=== PATIENT | male | born 1930 | race Hispanic/Latino ===

== ENCOUNTER 2016-06-17 10:38 | Inpatient (IN) | payer MEDICARE ==
[2016-06-17] MEDS ORDERED: NACL 0.9% 1000 ML 1,000 ML ONE (10:54)
[2016-06-17] MEDS ORDERED: NACL 0.9% 1000 ML 1,000 ML IV ONE (11:01)
[2016-06-17 11:41] LABS: Basophils % (Auto) 0.5 % (0.0-1.8); Eosinophils % (Auto) 0.5 % (0.0-4.3); Hematocrit 35.9 % (35.5-45.6); Hemoglobin 11.2 gm/dl (11.8-15.2); Mean Corpuscular HGB Conc 31 % (32-34); Mean Corpuscular Hemoglobin 29 pg (28-32); Mean Corpuscular Volume 92 fl (84-94); Platelet Count 423 K/mm3 (140-440); Red Blood Count 3.89 M/mm3 (3.65-5.03); Red Cell Distribution Width 16.8 % (13.2-15.2); White Blood Count 12.1 K/mm3 (4.5-11.0)
[2016-06-17 11:48] LABS: ISTAT Base Excess -10; ISTAT HCO3 15.1; ISTAT PCO2 26.1 (35-45); ISTAT PH 7.371 (7.35-7.45); ISTAT PO2 242 (80-105); ISTAT SO2 100; ISTAT TCO2 16
--- NOTE | 2016-06-17 11:53 | XRay Report ---
PORTABLE CHEST INDICATION: Possible sepsis. COMPARISON: 04/18/2016 FINDINGS: Portable, frontal chest radiograph demonstrates normal cardiomediastinal silhouette and clear lungs. Some skin fold artifacts. Aortic atherosclerotic calcifications. EKG leads. Demineralized bones with few degenerative changes. Few surgical clips in the right neck also noted. CONCLUSION: No acute chest process, as described. Thank you for the opportunity to participate in this patient's care.
[2016-06-17 11:56] LABS: INR 1.09 (0.87-1.13)
[2016-06-17 11:57] LABS: Partial Thromboplastin Time 30.3 Sec. (24.2-36.6)
[2016-06-17] MEDS ORDERED: VANCOMYCIN PHARMACY TO DOSE IV SCH (12:00)
[2016-06-17 12:01] LABS: Alanine Aminotransferase 5 units/L (7-56); Albumin 2.9 g/dL (3.9-5); Albumin/Globulin Ratio 0.7 %; Alkaline Phosphatase 67 units/L (35-129); Bilirubin,Total 0.2 mg/dL (0.1-1.2); Blood Urea Nitrogen 61 mg/dL (9-20); Calcium 8.8 mg/dL (8.4-10.2); Carbon Dioxide 16 mmol/L (22-30); Glucose 129 mg/dL (75-100); Magnesium 3.3 mg/dL (1.7-2.3); Potassium 5.5 mmol/L (3.6-5.0); Sodium 140 mmol/L (137-145); Total Protein 7.3 g/dL (6.3-8.2)
[2016-06-17 12:04] LABS: Anion Gap 27 mmol/L; Bilirubin,Direct < 0.2 mg/dL (0-0.2)
--- NOTE | 2016-06-17 12:26 | Admit Criteria Form ---
Admission Criteria Documentation: SEVERE SEPSIS Clinical Indications for Admission to Inpatient Care (Place 'X' for any and all applicable criteria): Hospital admission is needed for appropriate care of the patient because of ANY ONE of the following: [X]I. Hemodynamic instability indicated by ANY ONE of the following(1)(2)(3)( 4)(5): [X]a. Vital sign abnormality not readily corrected by appropriate treatment within 12 to 24 hours indicated by ANY ONE of the following: []i) Tachycardia that persists despite appropriate treatment []ii) Hypotension that persists despite appropriate treatment []iii) Orthostatic vital sign changes that persist despite appropriate treatment [X]b. Vital sign abnormality that is severe indicated by ANY ONE of the following: [X]i. Inadequate perfusion indicated by ANY ONE of the following: [X]1) Lactic acidosis (greater than 2 mmol/L) []2) New abnormal capillary refill (greater than 3 seconds) []3) Reduced urine output []4) New altered mental status []5) Myocardial Ischemia []ii. Mean arterial pressure [A] less than 60 mm Hg []iii. Mean arterial pressure[A] less than 70 mm Hg after 30 minutes of appropriate treatment (eg, fluid resuscitation) []iv. Sustained heart rate greater than 120 beats per minute in adult []v. IV inotropic or vasopressor medication required to maintain adequate blood pressure or perfusion []II. Systemic or infectious condition causing severe symptoms or findings not responsive to emergency or observation care treatment (as appropriate) indicated by ANY ONE of the following: []a. Cardiac arrhythmias of immediate concern(1)(2)(3) []b. Severe endocrine disorder (eg, thyrotoxicosis, adrenal insufficiency)(4)(5) []c. Seizures (eg, new or recurrent)(6) []d. New-onset end organ failure or dysfunction as indicated by ANY ONE of the following: []i. Acute unexplained hypoxemia (eg, not from lung infection or chronic disease)(7)(8)(9) []ii. Acute renal failure as indicated by new onset of ANY ONE of the following(10)(11)(12)(13)(14): []1) 3-fold rise in serum creatinine from baseline []2) Serum creatinine greater than 4 mg/dL (354 micromoles/L) with acute rise greater than 0.5 mg/dL (44.2 micromoles/L) []3) Reduction of more than 75% in estimated glomerular filtration rate from baseline. []4) Estimated glomerular filtration rate less than 35 mL/min/1.73m2 ( 0.59 mL/sec/1.73m2) in child younger than 18 years. []5) Cessation of urine output indicated by ALL of the following: []A. Adequate volume status []B. Inadequate urine output as indicated by ANY ONE of the following: []a. Urine output less than 0.3 mL/kg/hr for 24 hours []b. Anuria (urine output less than 0.1 mL/kg/hr) for 12 hours []iii. Acute mental status changes(15) []iv. Acute hepatic failure (eg, plasma bilirubin greater than 4 mg/ dL (68 micromoles/L), new INR greater than 2.0)(16)(17) []e. Unmanageable nausea and vomiting(18) []f. New-onset or uncontrolled central diabetes insipidus(19)(20) []g. Clinically significant dehydration(18)(21) []h. Hypoglycemia(22) []i. Acidosis (pH less than 7.35) or alkalosis (pH greater than 7.45)( 22)(23) []j. Toxic drug level that indicates need for specific monitoring or treatment(24)(25) []k. Severe electrolyte abnormalities indicated by ALL of the following( 1)(2)(3): []i. Electrolytes and associated findings are not as expected for patient baseline or acceptable treatment effects. []ii. Severe abnormalities indicated by ANY ONE of the following: []1) Sodium less than 130 mEq/L (mmol/L) (new) []2) Sodium less than 135 mEq/L (mmol/L) with ANY ONE of the following: []A. Uncorrectable (to near normal or chronic baseline) after trial of outpatient and emergency treatment []B. Altered mental status []C. Seizures []D. Severe medical etiology requiring inpatient management (eg , heart failure, hypovolemia) []3) Sodium greater than 155 mEq/L (mmol/L) []4) Sodium greater than 150 mEq/L (mmol/L) with ANY ONE of the following: []A. Uncorrectable (to near normal or chronic baseline) with outpatient and emergency treatment []B. Altered mental status []C. Seizures []D. Severe medical etiology (eg, hypovolemia, diabetes insipidus) []5) Potassium less than 2.5 mEq/L (mmol/L) despite outpatient and emergency treatment []6) Potassium less than 3 mEq/L (mmol/L) with ANY ONE of the following : []A. Weakness []B. Cardiac abnormality (eg, arrhythmia, conduction disturbance ) []C. Cardiac ischemia []D. Ileus []E. Ongoing medical cause requiring inpatient management (eg, acute renal wasting or SIADH) []F. Other severe symptoms []7) Potassium greater than 6.5 mEq/L (mmol/L) []8) Potassium greater than 5 mEq/L (mmol/L) with ANY ONE of the following: []A. Uncorrectable (to near normal or chronic baseline) with outpatient and emergency treatment []B. Severe ECG findings[A] []C. Acute worsening of renal failure (creatinine greater than 2.5 mg/dL (221 micromoles/L) or significant elevation for age and size) []D. Severe weakness []E. Severe medical etiology (eg, hemolysis, infection, drug overdose) []9) Calcium less than 7 mg/dL (1.75 mmol/L) despite outpatient and emergency treatment(5) []10) Calcium less than 8 mg/dL (2 mmol/L) with significant symptoms or findings (eg, altered mental status, muscle spasms, seizures, breathing difficulty, cardiac abnormality (eg, arrhythmia or conduction disturbance))(5) []11) Calcium greater than 14 mg/dL (3.5 mmol/L)(5) []12) Calcium greater than 12 mg/dL (3 mmol/L) with ANY ONE of the following(5): []A. Uncorrectable (to near normal or chronic baseline) with outpatient and emergency treatment []B. Significant dehydration or hypovolemia as indicated by ALL of the following(3)(6)(7): []a. Not resolved with initial treatments []b. Clinically significant dehydration as indicated by ANY ONE of the following: [](1) Vomiting refractory to outpatient treatment (ie, precluding oral rehydration) [](2) Inability to drink [](3) Hypernatremia or other electrolyte abnormality unable to be corrected with outpatient and emergency treatment [](4) Failure to remain hydrated with outpatient therapy [](5) Reduced urine output [](6) Hypotension [](7) Serious cause for dehydration requiring acute hospitalization ( eg, bowel obstruction, increased intracranial pressure, infectious cause) [](8) Child with ANY ONE of the following(8): [](i) Severe abdominal tenderness [](ii) Adequate care not available at home [](iii) Severe dehydration (greater than 9% loss of body weight) []C. Significant symptoms or findings (eg, altered mental status , cardiac abnormality (eg, arrhythmia, conduction disturbance), malignant etiology requiring inpatient treatment) []13) Phosphorus less than 1 mg/dL (0.32 mmol/L) []14) Phosphorus less than 1.5 mg/dL (0.48 mmol/L) with ANY ONE of the following: []A. Patient unresponsive to outpatient and emergency treatment []B. Significant symptoms or findings (eg, weakness, altered mental status, breathing difficulty, seizures, rhabdomyolysis) []15) Phosphorus greater than 10 mg/dL (3.2 mmol/L) []16) Phosphorus greater than 4.5 mg/dL (1.45 mmol/L) (new) with ANY ONE of the following: []A. Severe medical etiology (eg, crush injury, acute renal failure) []B. Associated hypocalcemia with significant findings (eg, neurologic symptoms, altered mental status, muscle spasms, seizures, breathing difficulty, cardiac abnormality (eg, arrhythmia, conduction disturbance)) []16) Magnesium less than 1 mg/dL (0.41 mmol/L) []17) Magnesium less than 1.5 mg/dL (0.62 mmol/L) with ANY ONE of the following: []A. Patient unresponsive to outpatient and emergency treatment []B. Associated hypocalcemia with significant findings (eg, altered mental status, muscle spasms, seizures, breathing difficulty, cardiac abnormality (eg, arrhythmia, conduction disturbance)) []C. Associated hypokalemia (potassium less than 3 mEq/L (mmol/L )) with risk of arrhythmia []18) Magnesium greater than 4 mEq/L (2 mmol/L) []19) Magnesium greater than 2.5 mEq/L (1.25 mmol/L) with significant symptoms or findings (eg, weakness, altered mental status, cardiac abnormality (eg, arrhythmia, conduction disturbance), breathing difficulty, severe medical etiology (eg, renal failure, hypovolemia)) []20) Uric acid greater than 20 mg/dL (1190 micromoles/L)(9) []21) Uric acid greater than 8 mg/dL (476 micromoles/L) with significant symptoms or findings of tumor lysis syndrome (eg, creatinine greater than 1.5 times upper limit of normal, cardiac abnormality (eg , arrhythmia, conduction disturbance), seizure)(9) []III. High fever or other high-risk infection situation as indicated by ANY ONE of the following(26)(27)(28): []a. Outpatient and observation care antimicrobial treatment unavailable, not effective, or not appropriate []b. Documented bacteremia []c. Temperature greater than 104.9 degrees F (40.5 degrees C) (oral) []d. Temperature greater than 103.1 degrees F (39.5 degrees C) (oral) or less than 96.8 degrees F (36 degrees C) (rectal) that does not respond to emergency treatment and observation care []IV. High-risk febrile neutropenia[A] as indicated by ANY ONE of the following(29)(30)(31)(32): []a. Profound neutropenia[B] anticipated to extend for more than 7 days []b. Hemodynamic instability []c. Hypoxemia []d. Tachypnea []e. Altered mental status []f. New-onset abdominal pain []g. New-onset vomiting or diarrhea []h. Oral or gastrointestinal mucositis that interferes with swallowing or causes severe diarrhea []i. Focal infection (eg, cellulitis, pneumonia, central line or catheter infection, perirectal abscess) []j. Renal insufficiency (eg, GFR of less than 30 mL/min/1.73m2 (0.5 mL/sec /1.73m2)). []k. Severe liver dysfunction (transaminase levels greater than 5 times normal) []l. Platelet count less than 50,000/mm3 (50 x109/L)(33) []m. Leukemia or lymphoma induction therapy []n. Leukemia not in complete remission or with evidence of disease progression []o. Bone marrow transplant patient []p. Alemtuzumab being used for therapy []q. [employer] Association for Supportive Care in Cancer (MASCC) Risk Index score of less than 21[C](33)(35). []V. Isolation required (eg, tuberculosis that requires isolation, Ebola infection)[D](36)(37)(38)(39)(40) []. Gangrene that requires treatment beyond emergency or observation level care(41)(42) []VII. Antitoxin administration and ongoing observation required (eg, tetanus, botulism)(43)(44) []. Suspected infection with rapid progression or severe symptoms as indicated by ANY ONE of the following(45): []a. Streptococcal or staphylococcal toxic shock(46) []b. Diphtheria(47) []c. Hantavirus(48) []d. Severe acute respiratory syndrome(8)(49) []e. Anthrax(50) []f. Ebola[D](36)(37)(38) []g. Necrotizing soft tissue infection(41)(42) []h. Plague(50) []i. Other suspected infection that requires care beyond emergency or observation level care []VII. Severe adverse drug or systemic toxin reaction as indicated by ANY ONE of the following(24): []a. Serotonin syndrome(51)(52) []b. Neuroleptic malignant syndrome(51)(52) []c. Cholinergic syndrome with severe symptoms (eg, bronchorrhea, weakness , mental status changes, seizures)(53) []d. Anticholinergic syndrome []e. Sympathetic syndrome with severe symptoms (eg, seizures, mental status changes, cardiac dysrhythmias) []f. Other severe adverse drug or systemic toxin reaction that remains after emergency or observation level care (as appropriate) []VIII. Allergic reaction with severe symptoms (not responsive to emergency or observation care treatment as appropriate), including ANY ONE of the following(54): []a. Airway edema (pharyngeal, epiglottic, or laryngeal edema) []b. Stridor []c. Respiratory failure []d. Bronchospasm []e. Hypotension []IX. Environmental emergency (not responsive to emergency or observation care treatment as appropriate) as indicated by ANY ONE of the following(55)(56): []a. Hyperthermia []b. Heat stroke []c. Heat exhaustion []d. Hypothermia (temperature less than 95 degrees F (35 degrees C) rectal) (57) []e. Electrocution(58) []X. Complications of transplanted organ (ie, not covered elsewhere)[E] indicated by ANY ONE of the following(59): []a. Acute graft rejection (or graft vs. host disease)[F] requiring inpatient management (eg, intravenous immunosuppression)(60)(61)(62)( 63) []b. Acute failure of transplanted organ necessitating inpatient care (eg, cannot be managed in other setting) []c. Infection requiring inpatient management (eg, Hemodynamic instability, need for intravenous antimicrobial treatment)(64)(65) []d. Other complication of transplanted organ requiring inpatient management []XI. Systemic or Infectious Condition condition, symptom, or finding for which emergency and observation care have failed or are not considered appropriate. See General Criteria: Observation Care, General Admission Criteria or Pediatric General Admission Criteria guideline as appropriate. (Contents from SEVERE SEPSIS and SYSTEMIC OR INFECTIOUS CONDITION clinical indications for admission to inpatient care have been integrated in this form) The [facility] content [facility] by [facility] has been revised. The portions of the content which have been revised are identified through the use of italic text or in bold and [facility] has neither reviewed nor approved the modified material. All other unmodified content is copyright [facility]. Please see references footnoted in the original [facility] edition 2016 Admission Criteria Met: Yes
[2016-06-17] MEDS ORDERED: VANCOMYCIN/NS 1 GM/250 ML 250 ML IV SCH (13:00)
[2016-06-17] MEDS ORDERED: SODIUM BICARBONATE IV ONE ×3 (13:04→14:00)
--- NOTE | 2016-06-17 13:04 | Emergency Department Report ---
ED General Adult HPI - General Chief complaint: Dyspnea/Respdistress Stated complaint: LBP Time Seen by Provider: 06/17/16 11:27 Source: patient, EMS Mode of arrival: Stretcher Limitations: Physical Limitation - History of Present Illness Initial comments: Patient presents to this facility hypotensive with respiratory distress. He is limited ability to give any historical information. He is complaining of some chronic neck pain but otherwise denies any chest or abdominal pain. -: unknown Consistency: constant Improves with: none Worsens with: none Associated Symptoms: denies other symptoms - Related Data Home Medications Medication Instructions Recorded Confirmed Last Taken Amlodipine Besylate/Benazepril 1 each PO QDAY 04/18/16 06/17/16 1 Day Ago [Lotrel 10-40 mg] 10 Antacid [Alum-Mag Hydrox-Simeth 30 ml PO Q6HR 04/18/16 06/17/16 1 Day Ago [id number]/[id number]] 30 Bisacodyl [Laxative] 5 mg PO PRN 04/18/16 06/17/16 2 Weeks Ago 5 Citalopram [celeXA] 10 mg PO QDAY 04/18/16 06/17/16 1 Day Ago 10 Ibuprofen [Motrin 800 MG tab] 800 mg PO Q8HR PRN 04/18/16 06/17/16 1 Day Ago 800 Lisinopril [Zestril TAB] 40 mg PO QDAY 04/18/16 06/17/16 1 Day Ago 40 Melatonin [Melatin] 3 mg PO HS 04/18/16 06/17/16 1 Day Ago 3 Mirtazapine [Remeron] 15 mg PO QHS 04/18/16 06/17/16 1 Day Ago 15 Naproxen Sodium [Aleve TAB] 440 mg PO DAILY 04/18/16 06/17/16 1 Day Ago 440 Previous Rx's Medication Instructions Recorded Last Taken Type oxyCODONE /ACETAMINOPHEN [Percocet 1 tab PO Q6H PRN #12 tablet 04/22/16 Unknown Rx 5/325 mg] Allergies Allergy/AdvReac Type Severity Reaction Status Date / Time Penicillins Allergy Anaphylaxis Verified 04/18/16 14:31 ED Review of Systems ROS: Stated complaint: LBP Other details as noted in HPI Comment: Unobtainable due to pts medical conditions (no further information is available secondary to patient's condition) ED Past Medical Hx - Past Medical History Previous Medical History?: Yes Hx Hypertension: Yes Hx CVA: Yes (left sided weakness 2001) Hx Psychiatric Treatment: Yes (major depressive disorder) Hx Dementia: Yes Hx HIV: No Additional medical history: [facility] in the past - Surgical History Past Surgical History?: Yes Additional Surgical History: Prostate Surgery - Social History Smoking Status: Former Smoker Substance Use Type: None - Medications Home Medications: Home Medications Medication Instructions Recorded Confirmed Last Taken Type Amlodipine Besylate/Benazepril 1 each PO QDAY 04/18/16 06/17/16 1 Day Ago History [Lotrel 10-40 mg] 10 Antacid [Alum-Mag Hydrox-Simeth 30 ml PO Q6HR 04/18/16 06/17/16 1 Day Ago History [id number]/[id number]] 30 Bisacodyl [Laxative] 5 mg PO PRN 04/18/16 06/17/16 2 Weeks Ago History 5 Citalopram [celeXA] 10 mg PO QDAY 04/18/16 06/17/16 1 Day Ago History 10 Ibuprofen [Motrin 800 MG tab] 800 mg PO Q8HR PRN 04/18/16 06/17/16 1 Day Ago History 800 Lisinopril [Zestril TAB] 40 mg PO QDAY 04/18/16 06/17/16 1 Day Ago History 40 Melatonin [Melatin] 3 mg PO HS 04/18/16 06/17/16 1 Day Ago History 3 Mirtazapine [Remeron] 15 mg PO QHS 04/18/16 06/17/16 1 Day Ago History 15 Naproxen Sodium [Aleve TAB] 440 mg PO DAILY 04/18/16 06/17/16 1 Day Ago History 440 oxyCODONE /ACETAMINOPHEN [Percocet 1 tab PO Q6H PRN #12 tablet 04/22/16 Unknown Rx 5/325 mg] ED Physical Exam - General Limitations: Physical Limitation General appearance: other (respiratory difficulty but not westley distress) - Head Head exam: Present: atraumatic, normocephalic - Eye Eye exam: Absent: PERRL, EOMI, scleral icterus - ENT ENT exam: Present: mucous membranes dry - Neck Neck exam: Present: normal inspection. Absent: tenderness, meningismus - Respiratory Respiratory exam: Present: normal lung sounds bilaterally. Absent: respiratory distress - Cardiovascular Cardiovascular Exam: Present: regular rate, normal rhythm, systolic murmur. Absent: diastolic murmur, rubs, gallop - GI/Abdominal GI/Abdominal exam: Present: soft, normal bowel sounds. Absent: distended, tenderness, guarding, rebound, rigid - Neurological Exam Neurological exam: Present: other (mild left hemiparesis (chronic)) - Psychiatric Psychiatric exam: Present: flat affect ED Course Vital Signs 06/17/16 06/17/16 06/17/16 10:44 10:45 10:47 Temperature 97.6 F Pulse Rate 76 85 Respiratory Rate Blood Pressure 92/43 92/43 O2 Sat by Pulse 100 93 Oximetry 06/17/16 06/17/16 06/17/16 11:00 11:16 11:30 Temperature Pulse Rate 74 78 79 Respiratory 14 16 12 Rate Blood Pressure 92/43 65/42 65/42 O2 Sat by Pulse 92 Oximetry 06/17/16 06/17/16 06/17/16 11:46 12:00 12:16 Temperature Pulse Rate 71 65 61 Respiratory 14 9 L 12 Rate Blood Pressure 72/49 84/52 84/52 O2 Sat by Pulse 77 L Oximetry 06/17/16 06/17/16 06/17/16 12:27 12:30 12:37 Temperature Pulse Rate 63 60 61 Respiratory 13 14 12 Rate Blood Pressure 127/39 127/39 O2 Sat by Pulse 100 Oximetry 06/17/16 06/17/16 06/17/16 12:45 12:47 13:01 Temperature Pulse Rate 61 60 68 Respiratory 10 L 10 L 23 Rate Blood Pressure 129/30 110/58 O2 Sat by Pulse Oximetry 06/17/16 06/17/16 06/17/16 13:15 13:31 13:45 Temperature Pulse Rate 64 65 Respiratory 20 11 L 16 Rate Blood Pressure 110/58 123/67 110/51 O2 Sat by Pulse 98 Oximetry 06/17/16 06/17/16 06/17/16 14:01 14:15 14:31 Temperature Pulse Rate 75 84 73 Respiratory 11 L 29 H 17 Rate Blood Pressure 120/48 126/53 97/49 O2 Sat by Pulse Oximetry 06/17/16 06/17/16 06/17/16 14:45 14:58 15:01 Temperature Pulse Rate 87 71 Respiratory 15 18 22 Rate Blood Pressure 107/50 107/50 O2 Sat by Pulse 83 L Oximetry 06/17/16 06/17/16 06/17/16 15:15 15:30 15:45 Temperature Pulse Rate 79 66 Respiratory 16 21 16 Rate Blood Pressure 114/48 106/43 103/41 O2 Sat by Pulse 100 Oximetry 06/17/16 06/17/16 16:00 16:15 Temperature Pulse Rate 59 L 66 Respiratory 16 17 Rate Blood Pressure 103/38 109/44 O2 Sat by Pulse 100 Oximetry - Reevaluation(s) Reevaluation #1: Patient was given a bolus saline. He is given empiric Miotic. A urine specimen could not be obtained. He was treated empirically. He was given an amp of bicarbonate in consideration of his metabolic acidosis and hyperkalemia. Repeat BMP was recommended to the hospitalist who admitted the patient for further care and evaluation. The patient did improve his blood pressure as well as his respiratory difficulty. He did not require any airway assistance. His blood pressure did normalize with IV fluids. 06/17/16 19:51 ED Medical Decision Making - Lab Data Result diagrams: 06/17/16 11:10 06/17/16 11:10 Laboratory Results - last 24 hr 06/17/16 06/17/16 06/17/16 11:10 11:10 11:10 WBC 12.1 H RBC 3.89 Hgb 11.2 L Hct 35.9 MCV 92 MCH 29 MCHC 31 L RDW 16.8 H Plt Count 423 Lymph % (Auto) 17.1 [place] % (Auto) 3.5 Eos % (Auto) 0.5 Baso % (Auto) 0.5 Lymph # 2.1 [place] # 0.4 Eos # 0.1 Baso # 0.1 Seg Neutrophils % 78.4 H Seg Neutrophils # 9.5 H PT 14.0 INR 1.09 APTT 30.3 POC ABG pH POC ABG pCO2 POC ABG pO2 POC ABG HCO3 POC ABG Total CO2 POC ABG O2 Sat POC ABG Base Excess VBG pH FiO2 Sodium Potassium Chloride Carbon Dioxide Anion Gap BUN Creatinine Estimated GFR BUN/Creatinine Ratio Glucose Lactic Acid 2.6 H* Calcium Magnesium Total Bilirubin Direct Bilirubin Indirect Bilirubin AST ALT Alkaline Phosphatase NT-Pro-B Natriuret Pep Total Protein Albumin Albumin/Globulin Ratio Acetaminophen 06/17/16 06/17/16 06/17/16 11:10 11:10 11:10 WBC RBC Hgb Hct MCV MCH MCHC RDW Plt Count Lymph % (Auto) [place] % (Auto) Eos % (Auto) Baso % (Auto) Lymph # [place] # Eos # Baso # Seg Neutrophils % Seg Neutrophils # PT INR APTT POC ABG pH POC ABG pCO2 POC ABG pO2 POC ABG HCO3 POC ABG Total CO2 POC ABG O2 Sat POC ABG Base Excess VBG pH 7.269 L FiO2 Sodium 140 Potassium 5.5 H Chloride 103.0 Carbon Dioxide 16 L Anion Gap 27 BUN 61 H Creatinine 2.5 H Estimated GFR 25 BUN/Creatinine Ratio 24.40 Glucose 129 H Lactic Acid Calcium 8.8 Magnesium 3.3 H Total Bilirubin 0.2 Direct Bilirubin < 0.2 Indirect Bilirubin 0.0 AST 8 ALT 5 L Alkaline Phosphatase 67 NT-Pro-B Natriuret Pep 1534 H Total Protein 7.3 Albumin 2.9 L Albumin/Globulin Ratio 0.7 Acetaminophen 06/17/16 06/17/16 11:40 11:42 WBC RBC Hgb Hct MCV MCH MCHC RDW Plt Count Lymph % (Auto) [place] % (Auto) Eos % (Auto) Baso % (Auto) Lymph # [place] # Eos # Baso # Seg Neutrophils % Seg Neutrophils # PT INR APTT POC ABG pH 7.371 POC ABG pCO2 26.1 L POC ABG pO2 242 H POC ABG HCO3 15.1 POC ABG Total CO2 16 POC ABG O2 Sat 100 POC ABG Base Excess -10 VBG pH FiO2 100 Sodium Potassium Chloride Carbon Dioxide Anion Gap BUN Creatinine Estimated GFR BUN/Creatinine Ratio Glucose Lactic Acid Calcium Magnesium Total Bilirubin Direct Bilirubin Indirect Bilirubin AST ALT Alkaline Phosphatase NT-Pro-B Natriuret Pep Total Protein Albumin Albumin/Globulin Ratio Acetaminophen < 15.0 - EKG Data -: EKG Interpreted by Me - Radiology Data interpreted by me: Chest x-ray no acute process Critical Care Time: Yes Critical care time in (mins) excluding proc time.: 40 Critical care attestation.: If time is entered above; I have spent that time in minutes in the direct care of this critically ill patient, excluding procedure time. ED Disposition Clinical Impression: Hypotensive episode, Prerenal azotemia, Hyperkalemia Chronic renal insufficiency Qualifiers: Chronic kidney disease stage: stage 3 (moderate) Qualified Code(s): N18.3 - Chronic kidney disease, stage 3 (moderate) Disposition: OP ADMITTED IP TO THIS HOSP Is pt being admited?: Yes Does the pt Need Aspirin: Yes Condition: Stable Time of Disposition: 19:54
[2016-06-17] MEDS ORDERED: MERREM 1,000 MG in NACL 0.9% 100 ML IV ONE (13:17)
[2016-06-17 13:23] LABS: Creatine Kinase MB 1.1 ng/mL (0.0-4.0)
[2016-06-17 13:24] LABS: Creatine Kinase 47 units/L (55-170)
[2016-06-17] MEDS ORDERED: TYLENOL PO ONE (14:16)
--- NOTE | 2016-06-17 14:27 | Event Note ---
Date: 06/17/16 See H/p in reports Hypotension -iatrogenic Acute renal failure CHF Hx of HTN-adjust meds and discharge on minimum medications Hyperkalemia-mild
[2016-06-17] MEDS ORDERED: BISACODYL 5 MG PO SCH (14:30)
[2016-06-17] MEDS ORDERED: MILK OF MAGNESIA PO PRN (14:31)
[2016-06-17] MEDS ORDERED: PERCOCET 5/325 PO PRN (14:31)
[2016-06-17] MEDS ORDERED: DULCOLAX PR PRN (14:31)
[2016-06-17] MEDS ORDERED: ZOFRAN IV PRN (14:31)
[2016-06-17] MEDS ORDERED: TYLENOL PO PRN (14:31)
[2016-06-17] MEDS ORDERED: TYLENOL ONE (14:54)
[2016-06-17] MEDS ORDERED: DULCOLAX PO PRN ×2 (14:55→14:57)
[2016-06-17] MEDS ORDERED: D5NS 1,000 ML IV SCH (15:00)
[2016-06-17] MEDS ORDERED: DULCOLAX PO SCH (15:00)
[2016-06-17] MEDS: MERREM/NS 500 MG/50 ML 50 ML IV SCH ×3 (16:15→23:11)
[2016-06-17] MEDS: celeXA PO SCH (18:12)
[2016-06-17] MEDS: LOVENOX SUB-Q SCH (18:13)
[2016-06-17] MEDS: REMERON PO SCH (21:51)
[2016-06-17] MEDS ORDERED: LEVAQUIN 750MG/150ML 150 ML IV SCH (23:45)
[2016-06-17] MEDS ORDERED: LEVAQUIN 750MG/150ML 150 ML IV ONE (23:45)
--- NOTE | 2016-06-18 00:58 | History and Physical Report ---
CHIEF COMPLAINT: Respiratory distress for 1 day. HISTORY OF PRESENT ILLNESS: An 85-year-old male comes in for shortness of breath and respiratory distress. Also, hypertensive. Complaining of chronic neck pain. Cough present. Lying in bed comfortably. Also, low-grade fever present. PAST MEDICAL HISTORY: Significant for: 1. Hypertension. 2. Cerebrovascular accident with left-sided weakness since 2001. 3. Major depressive disorder, dementia. Follows with [facility]. PAST SURGICAL HISTORY: Prostate surgery. SOCIAL HISTORY: Former smoker. FAMILY HISTORY: Significant for hypertension. CURRENT MEDICATIONS: Amlodipine 10 mg daily, benazepril 40 mg p.o. daily, antacids at 30 mL p.o. q.6 hours, Lidoderm 5 mg daily p.r.n., Celexa 10 mg p.o. daily, ibuprofen 800 mg p.o. q.8, lisinopril 40 mg p.o. daily, melatonin 3 mg p.o. at bedtime, Remeron 15 mg p.o. at bedtime, naproxen 440 mg p.o. daily, Percocet 5/325 p.o. q.6 p.r.n. REVIEW OF SYSTEMS: Significant for shortness of breath and low-grade fever. Otherwise, review of systems is essentially negative. PHYSICAL EXAMINATION: GENERAL: Elderly male lying in bed. VITAL SIGNS: Initial blood pressure was 65/42 mm Hg. DIAGNOSTIC DATA: Chest x-ray shows no acute process. EKG shows normal sinus rhythm. BUN and creatinine are 61 and 2.5. ASSESSMENT AND PLAN: 1. Hypotension. IV fluids for the time being. 2. Acute renal failure. IV fluids again. 3. Possible underlying chronic kidney disease. 4. Congestive heart failure. BNP is high. We will get echocardiogram. We will involve [facility] as a consult. Optimize diuretics. 5. Hypertension, Hold benazepril and amlodipine. 6. Depression. Continue escitalopram. In summary, the main problem is hypotension, acute renal failure, and mild hyperkalemia. Low blood pressure was treated with IV fluids and acute renal failure was treated with IV fluids. Echocardiogram for the ejection fraction. Cardiology consult and Nephrology consult requested. JOB# [id number] [employer] [employer]
[2016-06-18 05:24] LABS: Basophils % (Auto) 0.6 % (0.0-1.8); Eosinophils % (Auto) 1.9 % (0.0-4.3); Hematocrit 32.5 % (35.5-45.6); Hemoglobin 10.7 gm/dl (11.8-15.2); Mean Corpuscular HGB Conc 33 % (32-34); Mean Corpuscular Hemoglobin 29 pg (28-32); Mean Corpuscular Volume 90 fl (84-94); Platelet Count 378 K/mm3 (140-440); Red Blood Count 3.62 M/mm3 (3.65-5.03); Red Cell Distribution Width 16.1 % (13.2-15.2); White Blood Count 7.9 K/mm3 (4.5-11.0)
[2016-06-18 05:42] LABS: Albumin 2.8 g/dL (3.9-5); Albumin/Globulin Ratio 0.7 %; Alkaline Phosphatase 56 units/L (35-129); Anion Gap 22 mmol/L; BUN/Creatinine Ratio 28.57; Bilirubin,Total 0.2 mg/dL (0.1-1.2); Blood Urea Nitrogen 60 mg/dL (9-20); Calcium 8.1 mg/dL (8.4-10.2); Carbon Dioxide 21 mmol/L (22-30); Chloride 105.9 mmol/L (98-107); Glucose 99 mg/dL (75-100); Potassium 4.9 mmol/L (3.6-5.0); Sodium 144 mmol/L (137-145); Total Protein 6.6 g/dL (6.3-8.2)
[2016-06-18 05:45] LABS: Alanine Aminotransferase < 5 units/L (7-56)
[2016-06-18] MEDS: celeXA PO SCH (09:47)
--- NOTE | 2016-06-18 11:43 | Consultation ---
Addendum entered and electronically signed by ANTHONY FRANCISCO MD 12:23: Agree with Mrs Cordero assessment and plan No signs of heart failure on exam. Patient is actually hypovolemic ECG is showing rate controlled atrial fibrillation - patient is a poor candidate for anticoagulation (high bleeding risk) Continue asa No further cardiac work-up needed Original Note: History of Present Illness Consult date: 06/18/16 Consult reason: atrial fibrillation, congestive heart failure History of present illness: This is an frail 85yr old male admitted with shortness of breath and hypotension. Patient reports shortness of breath but denies chest pain. Noted to have a BNP of 1534. Chest x-ray reports no acute process. Cardiac consultation requested for CHF. Medications and Allergies Allergies Allergy/AdvReac Type Severity Reaction Status Date / Time Penicillins Allergy Anaphylaxis Verified 04/18/16 14:31 Home Medications Medication Instructions Recorded Confirmed Last Taken Type Amlodipine Besylate/Benazepril 1 each PO QDAY 04/18/16 06/17/16 1 Day Ago History [Lotrel 10-40 mg] 10 Antacid [Alum-Mag Hydrox-Simeth 30 ml PO Q6HR 04/18/16 06/17/16 1 Day Ago History [id number]/5Ml] 30 Bisacodyl [Laxative] 5 mg PO PRN 04/18/16 06/17/16 2 Weeks Ago History 5 Citalopram [celeXA] 10 mg PO QDAY 04/18/16 06/17/16 1 Day Ago History 10 Ibuprofen [Motrin 800 MG tab] 800 mg PO Q8HR PRN 04/18/16 06/17/16 1 Day Ago History 800 Lisinopril [Zestril TAB] 40 mg PO QDAY 04/18/16 06/17/16 1 Day Ago History 40 Melatonin [Melatin] 3 mg PO HS 04/18/16 06/17/16 1 Day Ago History 3 Mirtazapine [Remeron] 15 mg PO QHS 04/18/16 06/17/16 1 Day Ago History 15 Naproxen Sodium [Aleve TAB] 440 mg PO DAILY 04/18/16 06/17/16 1 Day Ago History 440 oxyCODONE /ACETAMINOPHEN [Percocet 1 tab PO Q6H PRN #12 tablet 04/22/16 Unknown Rx 5/325 mg] Active Meds: Active Medications Acetaminophen (Tylenol) 650 mg PO Q4H PRN PRN Reason: Pain MILD(1-3)/Fever >100.5/SOLO Last Admin: 06/17/16 14:58 Dose: 650 mg Aspirin (Baby Aspirin) 81 mg PO QDAY ONE Stop: 06/18/16 21:01 Bisacodyl (Dulcolax) 10 mg [place] QDAY PRN PRN Reason: Constipation unrelieved by MOM Bisacodyl (Dulcolax) 5 mg PO PRN MADHU Citalopram Hydrobromide (Celexa) 10 mg PO QDAY [facility] Last Admin: 06/18/16 09:47 Dose: 10 mg Enoxaparin Sodium (Lovenox) 30 mg SUB-Q QDAY [facility] Levofloxacin/Dextrose (Levaquin 500mg/100ml) 100 mls @ 100 mls/hr IV Q48H [facility] PRN Reason: Protocol Magnesium Hydroxide (Milk Of Magnesia) 30 ml PO Q4H PRN PRN Reason: Constipation Mirtazapine (Remeron) 15 mg PO QHS [facility] Last Admin: 06/17/16 21:51 Dose: 15 mg Ondansetron HCl (Zofran) 4 mg IV Q8H PRN PRN Reason: N/V unrelieved by Reglan Oxycodone/Acetaminophen (Percocet 5/325) 1 tab PO Q6H PRN PRN Reason: Pain, Moderate (4-6) Last Admin: 06/18/16 09:47 Dose: 1 tab Physical Examination Vital Signs Pulse Ox 100 06/17/16 10:44 General appearance: no acute distress HEENT: Positive: PERRL Neck: Positive: trachea midline Cardiac: Positive: Irregularly Regular Results 06/18/16 05:09 06/18/16 05:09 Cardiac Enzymes 06/18/16 Range/Units 05:09 AST 7 (5-40) units/L CBC 06/18/16 Range/Units 05:09 WBC 7.9 (4.5-11.0) K/mm3 RBC 3.62 L (3.65-5.03) M/mm3 Hgb 10.7 L (11.8-15.2) gm/dl Hct 32.5 L (35.5-45.6) % Plt Count 378 (140-440) K/mm3 Lymph # 1.3 (1.2-5.4) K/mm3 [place] # 0.4 (0.0-0.8) K/mm3 Eos # 0.1 (0.0-0.4) K/mm3 Baso # 0.1 (0.0-0.1) K/mm3 Comprehensive Metabolic Panel 06/18/16 Range/Units 05:09 Sodium 144 (137-145) mmol/L Potassium 4.9 (3.6-5.0) mmol/L Chloride 105.9 (98-107) mmol/L Carbon Dioxide 21 L (22-30) mmol/L BUN 60 H (9-20) mg/dL Creatinine 2.1 H (0.8-1.5) mg/dL Glucose 99 (75-100) mg/dL Calcium 8.1 L (8.4-10.2) mg/dL AST 7 (5-40) units/L ALT < 5 L (7-56) units/L Alkaline Phosphatase 56 (35-129) units/L Total Protein 6.6 (6.3-8.2) g/dL Albumin 2.8 L (3.9-5) g/dL EKG interpretations - EKG Supraventricular dysrhythmia: atrial fibrillation Assessment and Plan Hypotension -resolved Chronic renal failure Hx of CVA Hx of Prostate cancer Echocardiogram for LVEF assessment.
--- NOTE | 2016-06-18 12:02 | Progress Note ---
Assessment and Plan Assessment and plan: 1. Hypotension likely 2/2 volume depletion, cw IVF 2. DARIA 2/2 Vasomotor nephropathy cw IVF as above, GFR improving Obtain CT A/P to rule out obstruction 3. CHF keep euvolemic and optimize meds, as BP allows Fup echo 4. Depreesion cont SSRI History Interval history: denies dizzyness or Lightheadeness,he is c/o urinary frequency, but feels like he is not emptying his bladder Hospitalist Physical - Physical exam Narrative exam: General: Patient appears well in no distress HEENT: MMM, EOMI cardiac: S1-S2 heard lungs: clear to auscultation, abdomen: soft, nontender, nondistended bowel sounds positive extremities: no edema clubbing or cyanosis Skin: no rash or lesion Neuro: no focal deficit Psych: appropriate behavior and mood, cognition intact - Constitutional Vitals: Temp Pulse Resp BP Pulse Ox 97.6 F 44 L 26 H 118/56 96 06/18/16 07:00 06/18/16 07:00 06/18/16 07:00 06/18/16 07:00 06/18/16 07:00 General appearance: Present: no acute distress Results - Labs CBC & Chem 7: 06/18/16 05:09 06/18/16 05:09 Labs: Laboratory Last Values WBC 7.9 K/mm3 (4.5-11.0) 06/18/16 05:09 RBC 3.62 M/mm3 (3.65-5.03) L 06/18/16 05:09 Hgb 10.7 gm/dl (11.8-15.2) L 06/18/16 05:09 Hct 32.5 % (35.5-45.6) L 06/18/16 05:09 MCV 90 fl (84-94) 06/18/16 05:09 MCH 29 pg (28-32) 06/18/16 05:09 MCHC 33 % (32-34) 06/18/16 05:09 RDW 16.1 % (13.2-15.2) H 06/18/16 05:09 Plt Count 378 K/mm3 (140-440) 06/18/16 05:09 Lymph % (Auto) 16.1 % (13.4-35.0) 06/18/16 05:09 [place] % (Auto) 5.5 % (0.0-7.3) 06/18/16 05:09 Eos % (Auto) 1.9 % (0.0-4.3) 06/18/16 05:09 Baso % (Auto) 0.6 % (0.0-1.8) 06/18/16 05:09 Lymph # 1.3 K/mm3 (1.2-5.4) 06/18/16 05:09 [place] # 0.4 K/mm3 (0.0-0.8) 06/18/16 05:09 Eos # 0.1 K/mm3 (0.0-0.4) 06/18/16 05:09 Baso # 0.1 K/mm3 (0.0-0.1) 06/18/16 05:09 Seg Neutrophils % 75.9 % (40.0-70.0) H 06/18/16 05:09 Seg Neutrophils # 6.0 K/mm3 (1.8-7.7) 06/18/16 05:09 PT 14.0 Sec. (12.2-14.9) 06/17/16 11:10 INR 1.09 (0.87-1.13) 06/17/16 11:10 APTT 30.3 Sec. (24.2-36.6) 06/17/16 11:10 POC ABG pH 7.371 (7.35-7.45) 06/17/16 11:42 POC ABG pCO2 26.1 (35-45) L 06/17/16 11:42 POC ABG pO2 242 (80-105) H 06/17/16 11:42 POC ABG HCO3 15.1 06/17/16 11:42 POC ABG Total CO2 16 06/17/16 11:42 POC ABG O2 Sat 100 06/17/16 11:42 POC ABG Base Excess -10 06/17/16 11:42 VBG pH 7.269 (7.320-7.420) L 06/17/16 11:10 FiO2 100 % 06/17/16 11:42 Sodium 144 mmol/L (137-145) 06/18/16 05:09 Potassium 4.9 mmol/L (3.6-5.0) 06/18/16 05:09 Chloride 105.9 mmol/L (98-107) 06/18/16 05:09 Carbon Dioxide 21 mmol/L (22-30) L 06/18/16 05:09 Anion Gap 22 mmol/L 06/18/16 05:09 BUN 60 mg/dL (9-20) H 06/18/16 05:09 Creatinine 2.1 mg/dL (0.8-1.5) H 06/18/16 05:09 Estimated GFR 30 ml/min 06/18/16 05:09 BUN/Creatinine Ratio 28.57 % 06/18/16 05:09 Glucose 99 mg/dL (75-100) 06/18/16 05:09 Hemoglobin A1c 5.0 % (4-6) 06/17/16 11:10 Lactic Acid 1.2 mmol/L (0.7-2.0) 06/18/16 05:09 Calcium 8.1 mg/dL (8.4-10.2) L 06/18/16 05:09 Magnesium 3.3 mg/dL (1.7-2.3) H 06/17/16 11:10 Total Bilirubin 0.2 mg/dL (0.1-1.2) 06/18/16 05:09 Direct Bilirubin < 0.2 mg/dL (0-0.2) 06/17/16 11:10 Indirect Bilirubin 0.0 mg/dL 06/17/16 11:10 AST 7 units/L (5-40) 06/18/16 05:09 ALT < 5 units/L (7-56) L 06/18/16 05:09 Alkaline Phosphatase 56 units/L (35-129) 06/18/16 05:09 Total Creatine Kinase 47 units/L (55-170) L 06/17/16 11:40 CK-MB (CK-2) 1.1 ng/mL (0.0-4.0) 06/17/16 11:40 CK-MB (CK-2) Rel Index 2.3 (0-4) 06/17/16 11:40 Troponin T < 0.010 ng/mL (0.00-0.029) 06/17/16 11:40 NT-Pro-B Natriuret Pep 1534 pg/mL (0-900) H 06/17/16 11:10 Total Protein 6.6 g/dL (6.3-8.2) 06/18/16 05:09 Albumin 2.8 g/dL (3.9-5) L 06/18/16 05:09 Albumin/Globulin Ratio 0.7 % 06/18/16 05:09 Acetaminophen < 15.0 ug/mL (10.0-30.0) 06/17/16 11:40
[2016-06-18] MEDS ORDERED: NACL 0.9% 1000 ML 1,000 ML IV SCH ×2 (13:00→18:00)
--- NOTE | 2016-06-18 14:57 | Consultation ---
History of Present Illness - Reason for Consult Consult date: 06/18/16 acute renal failure, chronic renal failure - History of Present Illness Patient is a 85 yo WM with history significant for HTN, CKD (?stage), Left kidney mass and Depression came to ER from [place] with complaints of shortness of breath and hypotension. Patient is a poor historian. His systolic BP was in 60 's on arrival. BP is better now with IV fluids. His creatinine was 2.5 yesterday and has improved to 2.1 today. Patient received hemodialysis during last admission for DARIA. His creatinine was 2.1 at the time of discharge. His baseline creatinine ia unknown. He was found to have a left kidney mass. Please see notes from previous admission. Patient reports poor appetite, nausea , fatigue and feeling unwell. Past History Past Medical History: atrial fib, hypertension, renal failure Medications and Allergies Allergies Allergy/AdvReac Type Severity Reaction Status Date / Time Penicillins Allergy Anaphylaxis Verified 04/18/16 14:31 Home Medications Medication Instructions Recorded Confirmed Last Taken Type Amlodipine Besylate/Benazepril 1 each PO QDAY 04/18/16 06/17/16 1 Day Ago History [Lotrel 10-40 mg] 10 Antacid [Alum-Mag Hydrox-Simeth 30 ml PO Q6HR 04/18/16 06/17/16 1 Day Ago History [id number]/5Ml] 30 Bisacodyl [Laxative] 5 mg PO PRN 04/18/16 06/17/16 2 Weeks Ago History 5 Citalopram [celeXA] 10 mg PO QDAY 04/18/16 06/17/16 1 Day Ago History 10 Ibuprofen [Motrin 800 MG tab] 800 mg PO Q8HR PRN 04/18/16 06/17/16 1 Day Ago History 800 Lisinopril [Zestril TAB] 40 mg PO QDAY 04/18/16 06/17/16 1 Day Ago History 40 Melatonin [Melatin] 3 mg PO HS 04/18/16 06/17/16 1 Day Ago History 3 Mirtazapine [Remeron] 15 mg PO QHS 04/18/16 06/17/16 1 Day Ago History 15 Naproxen Sodium [Aleve TAB] 440 mg PO DAILY 04/18/16 06/17/16 1 Day Ago History 440 oxyCODONE /ACETAMINOPHEN [Percocet 1 tab PO Q6H PRN #12 tablet 04/22/16 Unknown Rx 5/325 mg] Active Meds: Active Medications Acetaminophen (Tylenol) 650 mg PO Q4H PRN PRN Reason: Pain MILD(1-3)/Fever >100.5/SOLO Last Admin: 06/17/16 14:58 Dose: 650 mg Aspirin (Baby Aspirin) 81 mg PO QDAY ONE Stop: 06/18/16 21:01 Bisacodyl (Dulcolax) 10 mg [place] QDAY PRN PRN Reason: Constipation unrelieved by MOM Bisacodyl (Dulcolax) 5 mg PO PRN MADHU Citalopram Hydrobromide (Celexa) 10 mg PO QDAY [facility] Last Admin: 06/18/16 09:47 Dose: 10 mg Enoxaparin Sodium (Lovenox) 30 mg SUB-Q QDAY [facility] Sodium Chloride (Nacl 0.9% 1000 Ml) 1,000 mls @ 75 mls/hr IV DIRECT MADHU Stop: 06/20/16 02:19 Magnesium Hydroxide (Milk Of Magnesia) 30 ml PO Q4H PRN PRN Reason: Constipation Mirtazapine (Remeron) 15 mg PO QHS [facility] Last Admin: 06/17/16 21:51 Dose: 15 mg Ondansetron HCl (Zofran) 4 mg IV Q8H PRN PRN Reason: N/V unrelieved by Reglan Oxycodone/Acetaminophen (Percocet 5/325) 1 tab PO Q6H PRN PRN Reason: Pain, Moderate (4-6) Last Admin: 06/18/16 09:47 Dose: 1 tab Review of Systems ROS unobtainable: due to mental status Exam - Vital Signs Vital signs: Vital Signs Pulse Ox 100 06/17/16 10:44 - General Appearance General appearance: cachectic, frail, other (no distress) EENT: PERRL, mucous membranes dry, hearing intact, vision intact Neck: Present: neck supple, trachea midline Respiratory: Clear to Ascultation Heart: S1S2, no murmurs Gastrointestinal: Present: normoactive bowel sounds, other (condom catheter noted). Absent: tenderness, distended, guarding Integumentary: no rash, warm and dry Neurologic: no focal deficit, confused Musculoskeletal: Present: other (no edema) Psychiatric: mood/affect appropriate, cooperative Results - Lab Results 06/18/16 05:09 06/18/16 05:09 Most recent lab results Calcium 8.1 mg/dL (8.4-10.2) L 06/18/16 05:09 Magnesium 3.3 mg/dL (1.7-2.3) H 06/17/16 11:10 Assessment and Plan - Patient Problems (1) DARIA (acute kidney injury) Current Visit: Yes Status: Acute Plan to address problem: Acute kidney Injury superimposed on CKD in the setting of hypotension and volume depletion. Creatinine is improving with IV fluids. BP is better. (2) Hypotensive episode Current Visit: Yes Status: Acute Plan to address problem: BP is better. (3) Renal mass Current Visit: Yes Status: Acute Plan to address problem: Please see notes from last admission.
[2016-06-18 16:28] LABS: Bilirubin,Urine NEG (Negative); Blood,Urine SM (Negative); Ketones,Urine TR mg/dL (Negative); Leukocyte Esterase,Urine LG (Negative); Mucus,Urine FEW /HPF; Nitrite,Urine NEG (Negative); Protein,Urine <15 mg/dL mg/dL (Negative); Urobilinogen,Urine < 2.0 mg/dL (<2.0)
[2016-06-18 16:30] LABS: WBC,Urine > 182.0 /HPF (0.0-6.0)
[2016-06-18] MEDS ORDERED: BABY ASPIRIN PO ONE (21:00)
[2016-06-18] MEDS: REMERON PO SCH (22:15)
[2016-06-18] MEDS: LOVENOX SUB-Q SCH (22:17)
--- NOTE | 2016-06-19 03:52 | Cat Scan Report ---
FINAL REPORT PROCEDURE: CT ABDOMEN PELVIS WO CON TECHNIQUE: Computerized axial tomography of the abdomen and pelvis was performed without intravenous contrast. This study is performed without intravascular contrast material and its sensitivity for abdominal and pelvic pathology, including neoplasms, inflammation, abscess, free fluid, thrombosis, arterial dissection and infarction, is reduced compared with a contrast enhanced study. HISTORY: DARIA, urinary retention, pls r/o obstructive uropat COMPARISON: 04/19/2016 FINDINGS: Visualized lower thorax: Moderate left effusion and mild right effusion are noted. Slight atelectasis bilateral lower lungs. Mild vascular congestion. Liver: The liver size is normal. There are few small cysts identified within the liver parenchyma, these have not changed. There is some biliary ductal dilatation. This has not changed.. Spleen: Normal size and attenuation. Gallbladder and biliary system: The gallbladder is distended. No stones are identified.. Pancreas: Normal. Adrenals: There is a 2 centimeter area of hypoattenuation in the left adrenal gland, and adenoma is suspected. There is a 1 centimeter region of hypoattenuation in the right adrenal gland. An adenoma is suspected.. Kidneys: There is thinning of the renal cortex bilaterally. Significant perinephric fat stranding identified bilaterally. Moderate left hydronephrosis and proximal hydroureter is identified on this study. This has not changed significantly since prior study. The right collecting system appears normal. There are few left peripelvic cysts. Bilateral renal cortical cysts are identified on this study. These have not changed. A large mixed attenuated lesion in the lower left kidney is identified and most likely represents a mass. This has not changed since prior study. Nonobstructive left uropathy is suspected. There is no evidence of a mass or stone in the course of the left ureter.. GI tract: The stomach is normal. A small hiatal hernia is identified. The small bowel has a normal caliber. No obstruction is seen. No ileus or enteritis. The cecum, appendix region and colon are normal. There is moderate diverticular change in the distal colon. No inflammatory process this region.. Lymph nodes and mesentery: Lymphadenopathy in the retroperitoneum is again identified. This has not changed since prior study. The largest lymph node grouping in the periaortic region measures 4.7 x 3.2 centimeters.. Vasculature: There is moderate atherosclerosis of the aorta and all branching vessels. Bladder: Normal appearance. There is some air in the urinary bladder, this is most consistent with iatrogenic catheterization.. Reproductive organs: Normal. Peritoneum: No free fluid. Musculoskeletal structures: Moderate degenerative changes of the thoracic and lumbar spine. No acute osseous abnormality.. Other: None. IMPRESSION: There remains moderate left hydronephrosis and hydroureter down into the pelvis. No obstructing stone or lesion within the ureter. Nonobstructive uropathy is suspected. No change in the patient's retroperitoneal adenopathy with lymph nodes surrounding the aorta. The largest grouping of lymph nodes measures up to 4.7 centimeters. No evidence of intestinal obstruction. Left kidney mass along the inferior pole is again noted and unchanged. Renal carcinoma is suspected. Distended gallbladder lumen with no evidence of stone formation. There is some distention of the biliary ductal system. Further evaluation with ultrasound and or HIDA scan may be appropriate. Newly developed bilateral lower lung atelectasis and effusions. The effusion is moderate on the left and slight on the right..
[2016-06-19 06:38] LABS: BUN/Creatinine Ratio 26.11; Chloride 109.3 mmol/L (98-107)
--- NOTE | 2016-06-19 08:51 | Discharge Summary ---
Providers - Providers Date of Admission: 06/17/16 14:31 Attending physician: SADAF CHAND MD 06/17/16 23:41 Consult to Physician [CONS] Routine Consulting Provider: JIGNESH MARI Reason For Exam: chf+hypotension Place consult to:: yenifer medina Notified:: office Phone number called:: overhead paged Was contact made?: Yes If yes, spoke with:: yenifer Shaikh called:: 09:48 06/17/16 23:42 Consult to Physician [CONS] Routine Consulting Provider: TAJ HERNÁNDEZ Reason For Exam: ARF Place consult to:: dr. hernández Notified:: dr hernández Phone number called:: [phone] Was contact made?: Yes If yes, spoke with:: dr. hernández Time called:: 10:01 Primary care physician: YUKO CERRATO Hospitalization Condition: Stable Hospital course: This is an 85M who presented with hypotension and dizzyness 1. Hypotension likely 2/2 volume depletion, and blood pressure medications, BP medications were discontinued, patient was hydrated with IV fluids 2. Acute kidney injury superimposed upon chronic kidney disease due to vasomotor nephropathy He was treated with IV fluids, and clinically improved, renal function returned to baseline 3. CHF Patient was actually hypovolemic upon admission, he was treated with IV fluids. 4. Atrial fibrillation Patient was continued on aspirin for stroke prophylaxis, patient is a high risk for bleeding therefore was not put on any other follow-up anticoagulation, his rate was controlled throughout the admission 5. Renal mass This was diagnosed on previous hospital admission, patient has been declared that he does not want any aggressive investigations a workup Disposition: DC/TX SNF [facility] Time spent for discharge: 35 minutes Core Measure Documentation - Palliative Care Palliative Care/ Comfort Measures: Not Applicable - Core Measures Any of the following diagnoses?: heart failure - Heart Failure Discharge Requirements KOKO/ARB for LVSD if EF <40%: No Reason for no KOKO/ARB: Hypotension Beta [place] at discharge: No Reason for no beta [place] on DC: Bradycardia Exam - Physical Exam Narrative exam: General: Patient appears well in no distress HEENT: MMM, EOMI cardiac: S1-S2 heard lungs: clear to auscultation, abdomen: soft, nontender, nondistended bowel sounds positive extremities: no edema clubbing or cyanosis Skin: no rash or lesion Neuro: no focal deficit Psych: appropriate behavior and mood, cognition intact - Constitutional Vitals: Temp Pulse Resp BP Pulse Ox 97.7 F 66 14 114/58 97 06/19/16 08:00 06/19/16 08:00 06/19/16 08:00 06/19/16 08:00 06/19/16 08:00 Plan Follow up with: YUKO CERRATO MD [Primary Care Provider] - 7 Days Prescriptions: oxyCODONE /ACETAMINOPHEN [Percocet 5/325 mg] 1 tab PO Q6H PRN #6 tablet PRN Reason: Pain, Moderate (4-6)
--- NOTE | 2016-06-19 08:55 | Progress Note ---
Assessment and Plan - Patient Problems (1) DARIA (acute kidney injury) Status: Acute Plan to address problem: Acute kidney Injury superimposed on CKD in the setting of hypotension and volume depletion. Creatinine continues to improve with IV fluids. BP is better. (2) Hypotensive episode Status: Acute Plan to address problem: BP is better. (3) Renal mass Status: Acute Plan to address problem: Please see notes from last admission. Subjective Date of service: 06/19/16 Interval history: No new complaint. Objective - Vital Signs Vital signs: Vital Signs - 12hr 06/19/16 06/19/16 00:00 08:00 Temperature 97.4 F L 97.7 F Pulse Rate [ 74 66 Right] Respiratory 16 14 Rate Blood Pressure 113/59 114/58 [Right Arm] O2 Sat by Pulse 97 97 Oximetry - General Appearance General appearance: frail, other (no distress) EENT: PERRL, mucous membranes moist, hearing intact Neck: no JVD, supple Respiratory: Present: Clear to Ascultation Cardiology: S1S2, no murmurs Gastrointestinal: normoactive bowel sounds, no tenderness, no distended, no guarding Integumentary: no rash, warm and dry Neurologic: no focal deficit, confused Musculoskeletal: other (no edema) Psychiatric: cooperative - Lab 06/18/16 05:09 06/19/16 05:49 Most recent lab results Calcium 8.0 mg/dL (8.4-10.2) L 06/19/16 05:49 Magnesium 3.3 mg/dL (1.7-2.3) H 06/17/16 11:10
--- NOTE | 2016-06-19 09:35 | Progress Note ---
Assessment and Plan Hypotension -resolved Chronic renal failure Hx of CVA Hx of Prostate cancer ECG is showing rate controlled atrial fibrillation - patient is a poor candidate for anticoagulation (high bleeding risk) Continue asa Echo results pending No further cardiac work-up needed Subjective Date of service: 06/19/16 Interval history: Patient resting in bed. He denies chest pain and shortness of breath. Objective Vital Signs Temp Pulse Resp BP Pulse Ox 06/19/16 08:00 97.7 F 66 14 114/58 97 06/19/16 00:00 97.4 F L 74 16 113/59 97 06/18/16 16:00 98 F 72 20 113/56 06/18/16 10:00 97 - Physical Examination General: No Apparent Distress HEENT: Positive: PERRL Neck: Positive: neck supple, trachea midline Cardiac: Positive: Reg Rate and Rhythm - Labs and Meds Comprehensive Metabolic Panel 06/19/16 Range/Units 05:49 Sodium 142 (137-145) mmol/L Potassium 5.0 (3.6-5.0) mmol/L Chloride 109.3 H (98-107) mmol/L Carbon Dioxide 21 L (22-30) mmol/L BUN 47 H (9-20) mg/dL Creatinine 1.8 H (0.8-1.5) mg/dL Glucose 102 H (75-100) mg/dL Calcium 8.0 L (8.4-10.2) mg/dL
[2016-06-19] MEDS ORDERED: LOVENOX SUB-Q SCH (10:00)
[2016-06-19] MEDS: celeXA PO SCH (10:02)
[2016-06-19 12:00] VITALS: BP 110/60
--- NOTE | 2016-06-19 13:16 | Echocardiography Report ---
Transthoracic Echocardiogram Indication: CHF BP: 138/65 HR: 58 Findings Procedure Info: The study quality is poor. The study is technically limited due to poor acoustic windows. The study is technically limited due to patient body habitus. The study was technically limited due to the patient's inability to lay in the left lateral decubitus position. Patient could not tolerate study Left Ventricle: The left ventricular chamber size is normal. Mild concentric left ventricular hypertrophy is observed. Global left ventricular systolic function is normal. The estimated ejection fraction is 60-65%. Left Atrium: The left atrial chamber size is normal. Right Ventricle: The right ventricle is not well visualized. The right ventricle wall thickness is normal. The right ventricular cavity size is normal. The right ventricular global systolic function is normal. Right Atrium: The right atrium is not well visualized. The right atrial cavity size is normal. Aortic Valve: The aortic valve is not well visualized. The aortic valve is trileaflet. The aortic valve leaflets are moderately thickened. Mild aortic leaflet calcification is visualized. There is trace of aortic regurgitation. There is no evidence of aortic stenosis. Mitral Valve: The mitral valve is not well visualized. The mitral valve leaflets appear myxomatous. The mitral valve leaflets are mildly thickened. There is trace of mitral regurgitation. There is no evidence of mitral stenosis. Tricuspid Valve: The tricuspid valve is not well visualized. There is mild tricuspid regurgitation. There is evidence of mild pulmonary hypertension. There is no tricuspid stenosis. Pulmonic Valve: The pulmonic valve is not well visualized. There is no evidence of pulmonic regurgitation. There is no pulmonic stenosis. Pericardium: A trivial pericardial effusion is visualized. No pleural effusion is present. Aorta: The aortic root is not well visualized. There is no dilatation of the aortic root. Pulmonary Artery: The main pulmonary artery is not well visualized. Venous: The inferior vena cava appears normal in size. Measurements Chambers MM Name Value Normal Range IVSd (MM) 1.21 cm (0.6 - 1.1) LVPWd (MM) 1.36 cm (0.6 - 1.1) IVS:LVPW ratio 0.89 ratio - LVIDd (MM) 4.05 cm (3.7 - 5.6) LVIDs (MM) 1.74 cm (2 - 2.8) LV FS (Teichholz) (MM) 57 % - LV FS (cube) (MM) 57 % - EF Teichholz (MM) 87.6 % - Ao root diameter (MM) 3 cm (2 - 3.7) LA dimension (AP) MM 3.7 cm (1.9 - 4) LA:Ao ratio (MM) 1.23 ratio - AV cusp separation (MM) 2.2 cm (1.5 - 2.6) Chambers 2D Name Value Normal Range IVSd (2D) 1.21 cm (0.6 - 1.1) LVPWd 1.3 cm - LVPWd (2D) 1.34 cm (0.6 - 1.1) IVS:LVPW ratio (2D) 0.9 ratio - LVIDd 4.1 cm - LVIDs 2 cm - LVIDd (2D) 4.05 cm (3.7 - 5.6) LVIDs (2D) 1.96 cm (2 - 3.8) LV FS (Teichholz) (2D) 51.6 % - LV FS (cube) (2D) 51.6 % - LV EF (2D) 80 % - EF Teichholz (2D) 83.2 % - LA dimension 2.5 cm - Ao root diameter (2D) 3 cm (2 - 3.7) LA dimension (AP) 2D 2.5 cm (1.9 - 4) LA:Ao ratio (2D) 0.83 ratio - Volumes/Mass Name Value Normal Range LA ESV SP 4CH (MOD) 23 ml - LV EDV SP 4CH (MOD) 61 ml - LV ESV SP 4CH (MOD) 18 ml - EF SP 4CH (MOD) 70 % - Diastolic/Systolic Function Name Value Normal Range MV E-wave Vmax 1.11 m/sec - MV deceleration time 187 msec - LV septal e' Vmax 0.1 m/sec - LV lateral e' Vmax 0.15 m/sec - LV E:e' septal ratio 10.7 ratio - LV E:e' lateral ratio 7.2 ratio - Aortic Valve Name Value Normal Range AV Vmax 0.91 m/sec - AV peak gradient 3 mmHg - LVOT diameter 1.9 cm - LVOT Vmax 0.78 m/sec - LVOT peak gradient 2 mmHg - DAGO (continuity Vmax) 2.44 cm2 - Tricuspid Valve Name Value Normal Range TR Vmax 2.9 m/sec - TR peak gradient 34 mmHg - RAP 3 mmHg - RVSP 37 mmHg - Pulmonic Valve/Qp:Qs Name Value Normal Range PV Vmax 1.22 m/sec - PV peak gradient 6 mmHg - PV acceleration time 77 msec -
[2016-06-19] MEDS ORDERED: LEVAQUIN 500MG/100ML 100 ML IV SCH (22:00)
== END 2016-06-19 13:00 | DRG 314 ==
LOC: ED 10:38 → 3A 14:31
PROVIDERS: ADMIT Internal Medicine; ATTEND Internal Medicine
PROC: 4A033R1 Measurement of Arterial Saturation, Peripheral, Percutaneous Approach (ICD-10-PCS; principal; 2016-06-17)
DX: I95.9 Hypotension, unspecified (principal); N17.0 Acute kidney failure with tubular necrosis; I13.0 Hypertensive heart and chronic kidney disease with heart failure and stage 1 through stage 4 chronic kidney disease, or unspecified chronic kidney disease; I69.354 Hemiplegia and hemiparesis following cerebral infarction affecting left non-dominant side; I50.9 Heart failure, unspecified; G89.29 Other chronic pain; M54.2 Cervicalgia; F32.9 Major depressive disorder, single episode, unspecified; F03.90 Unspecified dementia, unspecified severity, without behavioral disturbance, psychotic disturbance, mood disturbance, and anxiety; N18.3 Chronic kidney disease, stage 3 (moderate); I48.91 Unspecified atrial fibrillation; E86.9 Volume depletion, unspecified; Z98.890 Other specified postprocedural states; Z87.891 Personal history of nicotine dependence; Z82.49 Family history of ischemic heart disease and other diseases of the circulatory system; Z79.899 Other long term (current) drug therapy; Z88.0 Allergy status to penicillin; Z85.46 Personal history of malignant neoplasm of prostate; N28.89 Other specified disorders of kidney and ureter
CPT/HCPCS: 36415; 71010; 74176; 80048; 80053; 80074; 80320; 81001; 82140; 82550; 82553; 82803; 82805; 83036; 83735; 83880; 84484; 85025; 85610; 85730; 87040; 93005; 93010; 93306; 96361; 96365; 96367; 96375; 99291; G0480; J1650; J1956; J2185; J3370; J7030; J7042